=== PATIENT | female | born 1980 | race Caucasian/White ===

== ENCOUNTER 2016-10-28 23:28 | Emergency (ER) | payer MEDICAID ==
[2016-10-29 00:12] VITALS: BP 118/72
== END 2016-10-29 00:12 | disposition home or self-care (01) ==
LOC: ED 23:28
DX: O99.89 Other specified diseases and conditions complicating pregnancy, childbirth and the puerperium (principal); M54.5 Low back pain; R10.9 Unspecified abdominal pain; Z3A.14 14 weeks gestation of pregnancy

== ENCOUNTER 2019-03-18 16:20 | Emergency (ER) | payer MEDICAID ==
[~2019-03-18] VITALS: Ht 160 cm; Wt 78.9 kg
[2019-03-18 16:33] VITALS: BP 123/84; Ht 160 cm; Wt 78.9 kg
== END 2019-03-18 18:55 | disposition home or self-care (01) ==
LOC: ED 16:20
DX: M25.512 Pain in left shoulder (principal); M54.6 Pain in thoracic spine
CPT/HCPCS: J1885

== ENCOUNTER 2019-12-09 21:44 | Emergency (ER) | payer MEDICAID ==
[~2019-12-09] VITALS: Ht 160 cm; Wt 81.6 kg
[2019-12-09 21:57] VITALS: Ht 160 cm; Wt 81.6 kg
[2019-12-09 23:34] VITALS: BP 115/64
== END 2019-12-09 23:34 | disposition home or self-care (01) ==
LOC: ED 21:44
DX: N39.0 Urinary tract infection, site not specified (principal)